=== PATIENT | female | born 1940 | race Caucasian/White ===

== ENCOUNTER → 2017-01-04 | Outpatient (CLI) | payer MEDICARE ==
--- NOTE | 2017-01-04 14:25 | XR ---
EXAMINATION TYPE: XR chest 2V DATE OF EXAM: 01/04/2017 COMPARISON: None HISTORY: 76-year-old female sarcoidosis, COPD, increased shortness of breath TECHNIQUE: Frontal and lateral views FINDINGS: Severe scoliotic deformity disfiguring the thoracic cage especially on the lateral view. Heart is upper limits of normal in size. Aorta and pulmonary vasculature within normal limits. Eventr ation of the anterior right hemidiaphragm. No consolidation or pleural effusion. Cholecystectomy clips. IMPRESSION: Marked deformity to the thoracic cage secondary to severe scoliosis. Eventration right hemidiaphragm. No definite acute process.
== END | disposition home or self-care (01) ==
LOC: RADXRYALE 10:54
PROVIDERS: ATTEND Family Medicine
DX: Q79.1 Other congenital malformations of diaphragm (principal)
CPT/HCPCS: 71020

== ENCOUNTER 2017-01-16 14:54 | Emergency (ER) | payer MEDICARE ==
--- NOTE | 2017-01-16 15:30 | ED ---
General Adult HPI - General Chief complaint: Recheck/Abnormal Lab/Rx Stated complaint: Dr Sent/Blood Transfusion Time Seen by Provider: 01/16/17 15:17 Source: patient, family, RN notes reviewed Mode of arrival: wheelchair Limitations: no limitations - History of Present Illness Initial comments: Patient 76-year-old female who presents emergency room today with a chief complaint of a abnormal lab. She does admit that she was at her family doctor' s office 3 days ago and was told that her hemoglobin was low. She was advised coming to the hospital at that time. She states that she needed to wait for her son to help her get here to the hospital. Patient denies any symptoms. Denies any complaints. Denies any signs of blood in her stool. Denies any dark bowel movements. Patient denies any recent fever, chills, shortness of breath, chest pain, back pain, abdominal pain, dysuria or hematuria, constipation or diarrhea, headaches or visual changes, or any other complaints. - Related Data Home Medications Medication Instructions Recorded Confirmed Losartan Potassium 50 mg PO DAILY 01/16/17 01/16/17 Allergies Allergy/AdvReac Type Severity Reaction Status Date / Time No Known Allergies Allergy Verified 01/16/17 15:36 Review of Systems ROS Statement: Those systems with pertinent positive or pertinent negative responses have been documented in the HPI. ROS Other: All systems not noted in ROS Statement are negative. Past Medical History Past Medical History: COPD Additional Past Medical History / Comment(s): sarcoidosis History of Any Multi-Drug Resistant Organisms: None Reported Past Surgical History: Cholecystectomy, Hernia Repair, Hysterectomy Past Psychological History: No Psychological Hx Reported Smoking Status: Never smoker Past Alcohol Use History: None Reported Past Drug Use History: None Reported General Exam - General Exam Comments Initial Comments: General: The patient is awake and alert, in no distress, and does not appear acutely ill. Eye: Pupils are equal, round and reactive to light, extra-ocular movements are intact. No nystagmus. There is normal conjunctiva bilaterally. No signs of icterus. Ears, nose, mouth and throat: There are moist mucous membranes and no oral lesions. Neck: The neck is supple, there is no tenderness or JVD. Cardiovascular: There is a regular rate and rhythm. No murmur, rub or gallop is appreciated. Respiratory: Lungs are clear to auscultation, respirations are non-labored, breath sounds are equal. No wheezes, stridor, rales, or rhonchi. Musculoskeletal: Normal ROM, no tenderness. Strength 5/5. Sensation intact. Pulses equal bilaterally 2+. Neurological: A&O x 3. CN II-XII intact, There are no obvious motor or sensory deficits. Coordination appears grossly intact. Speech is normal. Skin: Skin is warm and dry and no rashes or lesions are noted. Psychiatric: Cooperative, appropriate mood & affect, normal judgment. Limitations: no limitations Course Vital Signs 01/16/17 01/16/17 01/16/17 15:12 15:55 16:35 Temperature 97.8 F Pulse Rate 57 L 61 57 L Respiratory 16 18 18 Rate Blood Pressure 192/81 195/88 155/70 O2 Sat by Pulse 95 100 100 Oximetry Medical Decision Making - Medical Decision Making Case discussed in detail with attending physician Dr. Luke. Patient reexamined at this time shows no signs of distress. Patient's labs been reviewed hemoglobin 8.1 today. She does not that she had labs obtained at her family doctor the other day was 7.0. Compared to emergency room for a blood transfusion. She was unable to come into her son was available take her here. At this time her hemoglobin is 8.1. She is asymptomatic. Guaiac is negative for any blood. Patient is advised follow-up the family doctor over the next 2 days. Advised to have a repeat hemoglobin. Advised to have blood pressure rechecked as well. Advised return to emergency room for any symptoms are increase or worsen concerns. - Lab Data Result diagrams: 01/16/17 16:01 01/16/17 16:01 Lab Results 01/16/17 01/16/17 01/16/17 Range/Units 16:01 16:01 16:01 WBC 5.5 (3.8-10.6) k/uL RBC 3.78 L (3.80-5.40) m/uL Hgb 8.1 L (11.4-16.0) gm/dL Hct 28.6 L (34.0-46.0) % MCV 75.6 L (80.0-100.0) fL MCH 21.5 L (25.0-35.0) pg MCHC 28.5 L (31.0-37.0) g/dL RDW 16.3 H (11.5-15.5) % Plt Count 313 (150-450) k/uL Neutrophils % 71 % Lymphocytes % 14 % Monocytes % 5 % Eosinophils % 7 % Basophils % 1 % Neutrophils # 3.9 (1.3-7.7) k/uL Lymphocytes # 0.8 L (1.0-4.8) k/uL Monocytes # 0.3 (0-1.0) k/uL Eosinophils # 0.4 (0-0.7) k/uL Basophils # 0.0 (0-0.2) k/uL Hypochromasia Marked Anisocytosis Slight Microcytosis Slight PT 10.3 (9.0-12.0) sec INR 1.0 (<1.2) APTT 23.6 (22.0-30.0) sec Sodium 140 (137-145) mmol/L Potassium 4.4 (3.5-5.1) mmol/L Chloride 104 (98-107) mmol/L Carbon Dioxide 28 (22-30) mmol/L Anion Gap 8 mmol/L BUN 18 H (7-17) mg/dL Creatinine 0.82 (0.52-1.04) mg/dL Est GFR (MDRD) Af Amer >60 (>60 ml/min/1.73 sqM) Est GFR (MDRD) Non-Af >60 (>60 ml/min/1.73 sqM) Glucose 89 (74-99) mg/dL Calcium 9.4 (8.4-10.2) mg/dL Total Bilirubin 0.5 (0.2-1.3) mg/dL AST 17 (14-36) U/L ALT 21 (9-52) U/L Alkaline Phosphatase 129 H (38-126) U/L Total Protein 7.7 (6.3-8.2) g/dL Albumin 4.0 (3.5-5.0) g/dL Disposition Clinical Impression: Anemia Disposition: HOME SELF-CARE Condition: Good Instructions: Anemia (ED) Additional Instructions: Please use medication as discussed. Please follow-up with family doctor in the next 2 days of symptoms have not improved. Please return to emergency room if the symptoms increase or worsen or for any other concerns. Referrals: Serjio Marie DO [Primary Care Provider] - 1-2 days Time of Disposition: 17:10
[2017-01-16 16:02] VITALS: RESP 18
[2017-01-16 16:15] LABS: Anisocytosis Slight; Basophils % (A) 1 %; CH 21.1; Eosinophils # (A) 0.4 k/uL (0-0.7); Eosinophils % (A) 7 %; HCT 28.6 % (34.0-46.0); HDW 3.08; HGB 8.1 gm/dL (11.4-16.0); Hypochromasia Marked; Luc # (Auto) 0.19; Luc % (Auto) 4; Lymphocytes # (A) 0.8 k/uL (1.0-4.8); Lymphocytes % (A) 14 %; MCH 21.5 pg (25.0-35.0); MCHC 28.5 g/dL (31.0-37.0); MCV 75.6 fL (80.0-100.0); Mean Platelet Volume 7.1; Microcytosis Slight; Monocytes # (A) 0.3 k/uL (0-1.0); Monocytes % (A) 5 %; Neutrophils # (A) 3.9 k/uL (1.3-7.7); Neutrophils % (A) 71 %; RBC 3.78 m/uL (3.80-5.40); RDW 16.3 % (11.5-15.5); WBC 5.5 k/uL (3.8-10.6); WBC (Perox) 5.34
[2017-01-16 16:22] LABS: Partial Thromboplastin Time 23.6 sec (22.0-30.0); Prothrombin Time 10.3 sec (9.0-12.0)
[2017-01-16 16:25] LABS: ALT 21 U/L (9-52); AST 17 U/L (14-36); Alkaline Phosphatase 129 U/L (38-126); Anion Gap 8 mmol/L; Blood Urea Nitrogen 18 mg/dL (7-17); Calcium 9.4 mg/dL (8.4-10.2); Carbon Dioxide 28 mmol/L (22-30); Chloride 104 mmol/L (98-107); Glucose 89 mg/dL (74-99); Non-African American GFR(MDRD) >60 (>60 ml/min/1.73 sqM); Potassium 4.4 mmol/L (3.5-5.1); Sodium 140 mmol/L (137-145); Total Bilirubin 0.5 mg/dL (0.2-1.3); Total Protein 7.7 g/dL (6.3-8.2)
[2017-01-16 17:41] VITALS: BP 188/84; PULSE 70; TEMP 97.4
== END 2017-01-16 17:40 | disposition home or self-care (01) ==
LOC: EC 14:54
DX: D64.9 Anemia, unspecified (principal); Z79.899 Other long term (current) drug therapy
CPT/HCPCS: 36415; 80053; 85025; 85610; 85730; 99283